=== PATIENT | female | born 1970 | race Caucasian/White ===

== ENCOUNTER 2018-06-16 06:52 | Day surgery (SDC) | payer BC ==
[2018-06-16] MEDS: Lactated Ringers 1,000 ML IV SCH ×3 (07:11→21:39)
[2018-06-16] MEDS ORDERED: fentaNYL 100 MCG/2 ML SDV ONE ×2 (07:14→08:57)
[2018-06-16] MEDS ORDERED: Propofol 200 MG/20 ML SDV ONE (07:14)
[2018-06-16] MEDS ORDERED: Ondansetron 4 MG/2 ML SDV ONE (07:14)
[2018-06-16] MEDS ORDERED: Midazolam 1 MG/ML 2 ML SDV ONE (07:15)
[2018-06-16] MEDS ORDERED: Rocuronium 10 MG/ML 10 ML Syringe ONE (07:17)
[2018-06-16] MEDS ORDERED: Dexamethasone 4 MG/ML 5 ML MDV ONE (07:17)
[2018-06-16] MEDS ORDERED: Succinylcholine 200 MG/10 ML MDV ONE (07:17)
[2018-06-16] MEDS ORDERED: Lidocaine 2% 5 ML SDV ONE (07:17)
--- NOTE | 2018-06-16 07:19 | PCM.PREANE ---
Preanesthetic Assessment - Anesthesia/Transfusion/Family Hx Anesthesia History: Prior Anesthesia Without Reaction Family History of Anesthesia Reaction: No Transfusion History: No Prior Transfusion(s) Intubation History: Unknown - Review of Systems General: No Symptoms Pulmonary: No Symptoms Cardiovascular: No Symptoms Gastrointestinal: No Symptoms Neurological: No Symptoms Other: Reports: None - Physical Assessment O2 Sat by Pulse Oximetry: 94 Respiratory Rate: 16 Vital Signs: Last Vital Signs Temp 36.2 C 06/16/18 07:10 Pulse 80 06/16/18 07:10 Resp 16 06/16/18 07:10 BP 142/92 H 06/16/18 07:10 Pulse Ox 94 L 06/16/18 07:10 Height: 1.66 m Weight: 88.904 kg ASA Class: 2 Mental Status: Alert & Oriented x3 Airway Class: Mallampati = 2 Dentition: Reports: Normal Dentition, Broken Tooth/Teeth (upper left x1 (back)) Thyro-Mental Finger Breadths: 3 Mouth Opening Finger Breadths: 3 ROM/Head Extension: Full Lungs: Clear to Auscultation, Normal Respiratory Effort Cardiovascular: Regular Rate, Regular Rhythm - Allergies Allergies/Adverse Reactions: Allergies Allergy/AdvReac Type Severity Reaction Status Date / Time No Known Allergies Allergy Verified 06/11/18 11:03 - Blood Blood Available: No - Anesthesia Plan Pre-Op Medication Ordered: None - Acknowledgements Anesthesia Type Planned: General Anesthesia Pt an Appropriate Candidate for the Planned Anesthesia: Yes Alternatives and Risks of Anesthesia Discussed w Pt/Guardian: Yes Pt/Guardian Understands and Agrees with Anesthesia Plan: Yes PreAnesthesia Questionnaire Cardiovascular History: Reports: High Cholesterol, Other (See Below) ( borderline HTN) Gastrointestinal History: Reports: Other (See Below) Other Gastrointestinal History: occasional heartburn- takes OTC meds 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: Reports: 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 , Musculoskeletal History: Reports: Arthritis Other Musculoskeletal History: arthritis in neck Endocrine/Metabolic History: Reports: Hypothyroidism, Obesity/BMI 30+ - Past Surgical History Female Surgical History: Reports: Endometrial Ablation, Salpingo-Oophorectomy , Tubal Ligation Neurological Surgical History: Reports: Lumbar Spine, Spinal Fusion Other Neurological Surgeries/Procedures: had fusion - then removal of hardware Musculoskeletal Surgical History: Reports: Other (See Below) Other Musculoskeletal Surgeries/Procedures:: right Bunionectomy- denies screw in foot - SUBSTANCE USE Smoking Status *Q: Current Every Day Smoker (3/4 ppd) Tobacco Use Within Last Twelve Months: Cigarettes Recreational Drug Use History: No - HOME MEDS Home Medications: Home Meds Levothyroxine 12.5 mg PO QAM 06/11/18 [History] Levothyroxine 200 mg PO QAM 06/11/18 [History] Multivitamin [Multiple Vitamins] 1 tab PO DAILY 06/11/18 [History] - CURRENT (IN HOUSE) MEDS Current Meds: Current Medications Lactated Ringer's (Ringers, Lactated) 1,000 mls @ 100 mls/hr IV ASDIRECTED [facility] Last Admin: 06/16/18 07:11 Dose: 100 mls/hr
[2018-06-16] MEDS ORDERED: Bupivacaine 0.25% 10 ML SDV ONE (07:27)
[2018-06-16] MEDS ORDERED: Methylene Blue 50 MG/10 ML Ampule ONE (07:27)
[2018-06-16] MEDS ORDERED: Fluorescein 5 ML Vial ONE (07:28)
[2018-06-16 07:41] LABS: CHLORIDE,CL 106 mmol/L (98-107); SODIUM,NA 142 mmol/L (136-145)
[2018-06-16] MEDS ORDERED: Scopolamine 1.5 MG Transdermal Patch ONE (08:12)
[2018-06-16] MEDS ORDERED: ceFAZolin/Dextrose,Iso-Osmotic 2 GM/50 ML Duplex Bag IV ONE (08:21)
[2018-06-16] MEDS ORDERED: Labetalol 100 MG/20 ML MDV ONE (08:21)
[2018-06-16] MEDS ORDERED: Phenylephrine/Normal Saline 100 MCG/ML 10 ML Syringe ONE (09:40)
[2018-06-16] MEDS ORDERED: Furosemide 40 MG/4 ML VIAL ONE (09:41)
[2018-06-16] MEDS ORDERED: Neostigmine Methylsulfate 1 MG/ML 5 ML Syringe ONE (09:41)
[2018-06-16] MEDS ORDERED: Glycopyrrolate 0.2 MG/ML SDV ONE (09:41)
[2018-06-16] MEDS ORDERED: Morphine 4 MG/ML Syringe IVPUSH PRN (10:25)
[2018-06-16] MEDS ORDERED: Ketorolac 30 MG/ML SDV IVPUSH ONE (10:25)
[2018-06-16] MEDS ORDERED: Aluminum Hydroxide/Magnesium Hydroxide/Simethicone Susp 30 ML Cup PO PRN (10:25)
[2018-06-16] MEDS ORDERED: Acetaminophen/oxyCODONE 325-5 MG Tab PO PRN (10:25)
[2018-06-16] MEDS ORDERED: Ondansetron 4 MG/2 ML SDV IVPUSH PRN (10:25)
[2018-06-16] MEDS ORDERED: Ketorolac 30 MG/ML SDV IVPUSH PRN (10:25)
[2018-06-16] MEDS ORDERED: Promethazine 25 MG/ML SDV IM PRN (10:25)
[2018-06-16] MEDS ORDERED: Belladonna Alkaloids/Opium 16.2-30 MG Supp RECTAL PRN (10:28)
--- NOTE | 2018-06-16 10:30 | PCM.OPNOTE ---
- General Post-Op/Procedure Note Date of Surgery/Procedure: 06/16/18 Operative Procedure(s): Laparoscopic Assisted Vaginal Hysterectomy, Right Salpingo-Oophorectomy, Cystoscopy Findings: Leiomyomata uteri. Left ovary and fallopian tube surgically absent. Pre Op Diagnosis: Leiomyomata uteri Post-Op Diagnosis: Leiomyomata uteri Anesthesia Technique: General ET Tube Primary Surgeon: Rolanda Morse Secondary Surgeon: Rody Singh Anesthesia Provider: Sheyla Gilbert Meat Inspector: Vesna Kuo Pathology: Uterus, right fallopian tube, right ovary Fluid Replacement, Intraop: 1,700 Output, Urine Amount: 240 EBL in mLs: 200 Complications: None known Condition: Good
--- NOTE | 2018-06-16 11:20 | PCM.POSTAN ---
POST ANESTHESIA ASSESSMENT - MENTAL STATUS Mental Status: Alert, Oriented - RESPIRATORY Respiratory Status: Respiratory Rate WNL, Airway Patent, O2 Saturation Stable - CARDIOVASCULAR CV Status: Pulse Rate WNL, Blood Pressure Stable - GASTROINTESTINAL GI Status: No Symptoms - PAIN Pain Score: 3 - POST OP HYDRATION Hydration Status: Adequate & Stable
[2018-06-16] MEDS: Acetaminophen/oxyCODONE 325-5 MG Tab PO PRN ×2 (12:59→18:00)
--- NOTE | 2018-06-16 14:10 | OR ---
SURGEON: Rolanda Morse M.D. DATE OF PROCEDURE: 06/16/2018 PREOPERATIVE DIAGNOSES: 1. Menometrorrhagia. 2. Uterine fibroids. POSTOPERATIVE DIAGNOSES: 1. Menometrorrhagia. 2. Uterine fibroids. PROCEDURE: Laparoscopic-assisted vaginal hysterectomy with right salpingo-oophorectomy, cystoscopy. SNOWBOARDING INSTRUCTOR: Rody Singh M.D. SECOND MUSIC VIDEO DIRECTOR: SCOTT Barton. ANESTHESIA: General endotracheal anesthesia. FLUIDS: 1700 mL crystalloid. ESTIMATED BLOOD LOSS: 200 mL. FINDINGS: Bulky, enlarged fibroid uterus. Normal-appearing right tube and ovary. Absent left tube and ovary consistent with previous surgical history. COMPLICATIONS: None. DISPOSITION: The patient to PACU stable. SPECIMEN: To pathology. PROCEDURE IN DETAIL: Isa is a 48-year-old female who is having ongoing difficulty with menometrorrhagia with known fibroid uterus. At this interval, she would like to proceed with definitive intervention. She has had a previous endometrial ablation and polypectomy hysteroscopically for which she has now failed. Risks of the procedure have been discussed. Proper consent obtained. She very strongly feels that she would like to have her right tube and ovary removed and go on aspirin therapy postoperatively. The patient was taken to the operating room where she underwent general anesthesia, was placed in modified dorsal lithotomy position, was prepped and draped in the usual sterile fashion. SCDs to lower extremities. Murray to gravity. Received Ancef prophylactically. Time-out was performed. Speculum was introduced in the vagina and anterior lip of cervix was grasped with an Allis clamp. The uterine HUMI manipulator was gently introduced. All the vaginal instruments other than the uterine instruments were now removed. Gloves changed. Attention turned abdominally. Infraumbilically, 0.25% Marcaine was introduced, please see nurse's notes for total amount dispensed. The 5-mm infraumbilical sagittal skin incision was created and anterior abdominal wall tented upward. Veress needle was gently introduced. Saline hanging drop test was performed. The pneumoperitoneum was achieved. The Veress needle was removed. Trocar was introduced, laparoscope was introduced, peritoneal contents were identified. The patient was placed in Trendelenburg positioning. The bowel was mobilized away from the pelvis. The ureter was able to be visualized along the right side and left side and seemed to be peristalsing. The left tube and ovary were absent consistent with previous surgical history. Therefore, with introduction of LigaSure, the remaining left broad ligament leaf pedicle was able to be secured down the level of the round ligament, which was secured with LigaSure, cauterized, and transected. The remaining pedicles including the upper portion of the cardinal ligament down the base of the cardinal ligament were able to be secured, cauterized and transected. Anteriorly, the peritoneum was tented upward and a bladder flap was created. The bladder was mobilized away from lower uterine segment and attention was now turned to the patient's right side. The left tube and ovary were able to be grasped, tented upward. The infundibulopelvic ligament was able to be secured with LigaSure, cauterized, and transected. The pedicle up to the level of the round ligament was able to be secured, cauterized, and transected. The pedicle incorporating the round ligament and the following pedicles including upper portion of the cardinal ligament, base of the cardinal ligament down the level of the uterosacral ligament was able to be secured, cauterized, and transected. The bladder flap was is hydrodissected away from the lower uterine segment of the cervix. Attention was now turned vaginally. Laparoscopic instruments were removed other than the ports. Pneumoperitoneum was released. The patient was placed in a hip flexed, knee flexed positioning. The weighted speculum, anterior [place], and sidewall retractors gently placed. Uterus was grasped with a Js clamp. The cervix was circumscribed with Bovie cautery, anterior and posterior laterally and the overlying mucosa was dissected away from underlying peritoneum. Posterior peritoneum was tented downward and entered sharply. Longer weighted speculum was placed anteriorly. The cul-de- sac was entered sharply. The retractors placed to mobilize the bladder away from the operative field. In serial fashion, Carlotta clamp was placed on either side to secure the uterosacral ligament, transected, suture ligated, sutured with 2-0 Vicryl. The remaining pedicle on either side was able to be secured, transected, and suture ligated. At this point, the uterus was completely free. Using Js clamps, the uterus was able to be gently maneuvered through the vaginal vault and delivered the uterus, right tube, and ovary. It was handed off to foundry technician to be sent to pathology. The pedicles were now inspected. There was an area of oozing along the left uterosacral ligament, which was plicated with a 2-0 Vicryl. The uterosacral ligament on either side was plicated to the vaginal apex. Hemostasis was evident. The cuff was now closed using 0 Vicryl in continuous running locked fashion. The cuff inspected, found to be hemostatic. Murray catheter balloon was deflated. The catheter was removed. Cystoscope was introduced using normal saline as distention media and introducing IV Lasix and fluorescein. Able to visualize dome of bladder, it was found to be intact. The right ureteral orifice followed by the left ureteral orifice able to be visualized. Fluorescein-dyed urine was seen streaming from them, helping to ensure ureteral patency. The bladder was now drained. Murray catheter was replaced after cystoscope was removed. The vaginal cuff was once again inspected and found to be hemostatic. All instruments removed vaginally. The gloves were changed and attention was returned abdominally. Pneumoperitoneum was once again achieved. Laparoscope was introduced. The pelvis was closely inspected. The pelvis was copiously irrigated and suction dried. Any areas of oozing along the base of the pedicles were cauterized with LigaSure. Hemostasis appeared evident. The uterus was once again irrigated and suction dried. Relief pressure decreased to 5 mmHg. Hemostasis was once again found to be present. Therefore pneumoperitoneum was released. All laparoscopic instruments removed. Trocars were removed under direct visualization. Much of the pneumoperitoneum as possible was able to be allowed to release. The skin was reapproximated using 3-0 Monocryl in subcuticular fashion. Sponge, instrument, needle counts correct x2. The patient tolerated the procedure well overall. She will go to PACU in stable condition. Specimen to pathology. SHELBY / PATTI /[id number]
--- NOTE | 2018-06-16 21:24 | PCM.SN ---
- Free Text/Narrative Note: Patient is resting, pain controlled overall. Explained intraop findings and procedure. Continue postoperative cares. Labs in the morning. VS stable and reassuring. Urine output adequate.
[2018-06-16] MEDS: Docusate Sodium 100 MG Cap PO SCH (21:35)
[2018-06-17] MEDS: Acetaminophen/oxyCODONE 325-5 MG Tab PO PRN (01:46)
[2018-06-17 06:05] LABS: CHLORIDE,CL 108 mmol/L (98-107); SODIUM,NA 141 mmol/L (136-145)
--- NOTE | 2018-06-17 07:44 | PCM.PN ---
<Vesna Kuo K - Last Filed: 06/17/18 07:50> - General Info Date of Service: 06/17/18 Subjective Update: Isa Lipscomb is a 48yo female who is POD#1 from [facility] with R salpingo- oophorectomy. Feeling "great" this AM. Having some pelvic cramping but feels pain well-controlled on PO pain meds. Minimal incisional pain. Catheter was removed and voiding without hesitancy or dysuria. Good UOP. Tolerating diet without nausea, appetite good. Passing flatus, no BM yet. Ambulating without difficulty. - Review of Systems General: Reports: No Symptoms HEENT: Reports: No Symptoms Pulmonary: Reports: No Symptoms Cardiovascular: Reports: No Symptoms Gastrointestinal: Reports: No Symptoms Genitourinary: Reports: Other (Pelvic pain) Musculoskeletal: Reports: No Symptoms Skin: Reports: No Symptoms Neurological: Reports: No Symptoms Psychiatric: Reports: No Symptoms - Patient Data Vitals - Most Recent: Last Vital Signs Temp 97.2 F 06/17/18 06:14 Pulse 75 06/17/18 06:14 Resp 17 06/17/18 06:14 BP 107/55 L 06/17/18 06:14 Pulse Ox 95 06/17/18 06:14 Weight - Most Recent: 88.904 kg I&O - Last 24 Hours: Intake & Output 06/16/18 06/17/18 06/17/18 22:59 06:59 14:59 Intake Total 3061 Output Total 1200 750 Balance -1200 2311 Lab Results Last 24 Hours: Laboratory Results - last 24 hr 06/16/18 06/16/18 06/16/18 Range/Units 07:10 07:10 07:10 WBC (4.0-11.0) K/uL RBC (4.30-5.90) M/uL Hgb (12.0-16.0) g/dL Hct (36.0-46.0) % MCV (80.0-98.0) fL MCH (27.0-32.0) pg MCHC (31.0-37.0) g/dL RDW Std Deviation (28.0-62.0) fl RDW Coeff of Sunny (11.0-15.0) % Plt Count (150-400) K/uL MPV (7.40-12.00) fL Neut % (Auto) (48.0-80.0) % Lymph % (Auto) (16.0-40.0) % [place] % (Auto) (0.0-15.0) % Eos % (Auto) (0.0-7.0) % Baso % (Auto) (0.0-1.5) % Neut # (Auto) (1.4-5.7) K/uL Lymph # (Auto) (0.6-2.4) K/uL [place] # (Auto) (0.0-0.8) K/uL Eos # (Auto) (0.0-0.7) K/uL Baso # (Auto) (0.0-0.1) K/uL Nucleated RBC % /100WBC Nucleated RBCs # K/uL Sodium 142 (136-145) mmol/L Potassium 3.8 (3.5-5.1) mmol/L Chloride 106 (98-107) mmol/L Carbon Dioxide 29.6 (21.0-32.0) mmol/L BUN 8 (7.0-18.0) mg/dL Creatinine 0.9 (0.6-1.0) mg/dL Est Cr Clr Drug Dosing 68.65 mL/min Estimated GFR (MDRD) > 60.0 ml/min Glucose 112 H (74-106) mg/dL Calcium 8.7 (8.5-10.1) mg/dL HCG, Qual NEGATIVE (NEG) Blood Type O POSITIVE Antibody Screen NEGATIVE 06/17/18 06/17/18 Range/Units 05:26 05:26 WBC 9.36 (4.0-11.0) K/uL RBC 3.52 L (4.30-5.90) M/uL Hgb 10.8 L (12.0-16.0) g/dL Hct 33.1 L (36.0-46.0) % MCV 94.0 (80.0-98.0) fL MCH 30.7 (27.0-32.0) pg MCHC 32.6 (31.0-37.0) g/dL RDW Std Deviation 47.6 (28.0-62.0) fl RDW Coeff of Sunny 14 (11.0-15.0) % Plt Count 204 (150-400) K/uL MPV 9.30 (7.40-12.00) fL Neut % (Auto) 68.0 (48.0-80.0) % Lymph % (Auto) 21.9 (16.0-40.0) % [place] % (Auto) 8.9 (0.0-15.0) % Eos % (Auto) 1.0 (0.0-7.0) % Baso % (Auto) 0.2 (0.0-1.5) % Neut # (Auto) 6.4 H (1.4-5.7) K/uL Lymph # (Auto) 2.1 (0.6-2.4) K/uL [place] # (Auto) 0.8 (0.0-0.8) K/uL Eos # (Auto) 0.1 (0.0-0.7) K/uL Baso # (Auto) 0.0 (0.0-0.1) K/uL Nucleated RBC % 0.0 /100WBC Nucleated RBCs # 0 K/uL Sodium 141 (136-145) mmol/L Potassium 3.7 (3.5-5.1) mmol/L Chloride 108 H (98-107) mmol/L Carbon Dioxide 30.2 (21.0-32.0) mmol/L BUN 7 (7.0-18.0) mg/dL Creatinine 0.9 (0.6-1.0) mg/dL Est Cr Clr Drug Dosing 68.65 mL/min Estimated GFR (MDRD) > 60.0 ml/min Glucose 107 H (74-106) mg/dL Calcium 7.9 L (8.5-10.1) mg/dL HCG, Qual (NEG) Blood Type Antibody Screen Med Orders - Current: Current Medications Al Hydroxide/Mg Hydroxide (Mag-Al Plus) 30 ml PO Q4H PRN PRN Reason: Indigestion Belladonna Alkaloids/Opium (B & O Supprettes No. 15a) 1 supp RECTAL Q4H PRN PRN Reason: Cramping Last Admin: 06/16/18 11:10 Dose: 1 supp Docusate Sodium (Colace) 100 mg PO BID [facility] Last Admin: 06/16/18 21:35 Dose: 100 mg Estradiol (Climara) 0.1 mg TRDERM Q7D [facility] Last Admin: 06/16/18 17:55 Dose: 0.1 mg Lactated Ringer's (Ringers, Lactated) 1,000 mls @ 100 mls/hr IV ASDIRECTED [facility] Last Admin: 06/16/18 21:39 Dose: 100 mls/hr Ketorolac Tromethamine (Toradol) 30 mg IVPUSH Q6H PRN PRN Reason: Pain (severe 7-10) Stop: 06/21/18 10:25 Last Admin: 06/16/18 21:36 Dose: 30 mg Morphine Sulfate (Morphine) 4 mg IVPUSH Q2H PRN PRN Reason: Pain (severe 7-10) Last Admin: 06/16/18 10:45 Dose: 4 mg Ondansetron HCl (Zofran) 4 mg IVPUSH Q6H PRN PRN Reason: Nausea/Vomiting Oxycodone/Acetaminophen (Percocet 325-5 Mg) 1 tab PO Q4H PRN PRN Reason: Pain (moderate 4-6) Oxycodone/Acetaminophen (Percocet 325-5 Mg) 2 tab PO Q4H PRN PRN Reason: Pain (moderate 4-6) Last Admin: 06/17/18 01:46 Dose: 2 tab Promethazine HCl (Phenergan) 25 mg IM Q6H PRN PRN Reason: Nausea/Vomiting Discontinued Medications Bupivacaine HCl (Sensorcaine-Mpf 0.25%) Confirm Administered Dose 20 ml .ROUTE .STK-MED ONE Stop: 06/16/18 07:28 Cefazolin Sodium/Dextrose (Ancef) Confirm Administered Dose 2 gm IV .STK-MED ONE Stop: 06/16/18 08:22 Dexamethasone (Dexamethasone) Confirm Administered Dose 20 mg .ROUTE .STK-MED ONE Stop: 06/16/18 07:18 Fentanyl (Sublimaze) Confirm Administered Dose 100 mcg .ROUTE .STK-MED ONE Stop: 06/16/18 07:15 Fentanyl (Sublimaze) Confirm Administered Dose 100 mcg .ROUTE .STK-MED ONE Stop: 06/16/18 08:58 Fluorescein Sodium (Ak-Fluor) Confirm Administered Dose 5 ml .ROUTE .STK-MED ONE Stop: 06/16/18 07:29 Furosemide (Lasix) Confirm Administered Dose 40 mg .ROUTE .STK-MED ONE Stop: 06/16/18 09:42 Glycopyrrolate (Robinul) Confirm Administered Dose 0.6 mg .ROUTE .[facility]-MED ONE Stop: 06/16/18 09:42 Ketorolac Tromethamine (Toradol) 30 mg IVPUSH ONETIME ONE Stop: 06/16/18 10:26 Last Admin: 06/16/18 11:32 Dose: Not Given Labetalol HCl (Normodyne) Confirm Administered Dose 100 mg .ROUTE .[facility]-MED ONE Stop: 06/16/18 08:22 Lidocaine (Xylocaine-Mpf 2%) Confirm Administered Dose 5 ml .ROUTE .[facility]-MED ONE Stop: 06/16/18 07:18 Methylene Blue (Provayblue) Confirm Administered Dose 50 mg .ROUTE .[facility]-MED ONE Stop: 06/16/18 07:28 Midazolam HCl (Versed 1 Mg/Ml) Confirm Administered Dose 2 mg .ROUTE .[facility]-MED ONE Stop: 06/16/18 07:16 Neostigmine Methylsulfate (Neostigmine) Confirm Administered Dose 5 mg .ROUTE .[facility]-MED ONE Stop: 06/16/18 09:42 Ondansetron HCl (Zofran) Confirm Administered Dose 4 mg .ROUTE .[facility]-MED ONE Stop: 06/16/18 07:15 Phenylephrine HCl (Phenylephrine In Ns 100 Mcg/Ml) Confirm Administered Dose 1 mg .ROUTE .[facility]-MED ONE Stop: 06/16/18 09:41 Propofol (Diprivan 20 Ml) Confirm Administered Dose 200 mg .ROUTE .[facility]-MED ONE Stop: 06/16/18 07:15 Rocuronium Brewster (Zemuron) Confirm Administered Dose 100 mg .ROUTE .[facility]-MED ONE Stop: 06/16/18 07:18 Scopolamine (Transderm-Scop) Confirm Administered Dose 1.5 mg .ROUTE .[facility]-MED ONE Stop: 06/16/18 08:13 Succinylcholine Chloride (Quelicin) Confirm Administered Dose 200 mg .ROUTE .[facility] -MED ONE Stop: 06/16/18 07:18 - Exam General: Alert, Oriented Lungs: Clear to Auscultation, Normal Respiratory Effort Cardiovascular: Regular Rate, Regular Rhythm, No Murmurs GI/Abdominal Exam: Normal Bowel Sounds, Soft, Non-Tender Extremities: Other (No calf tenderness) Peripheral Pulses: 2+: Posterior Tibial (L), Posterior Tibial (R), Dorsalis Pedis (L), Dorsalis Pedis (R) Skin: Warm, Dry, Intact Wound/Incisions: Dressing Dry and Intact, No Drainage. No: Erythema Neurological: No New Focal Deficit Psy/Mental Status: Normal Affect, Normal Mood - Problem List & Annotations (1) S/P laparoscopic assisted vaginal hysterectomy (LAVH) SNOMED Code(s): 625777370, 81101360, 226097393 Code(s): Z90.710 - ACQUIRED ABSENCE OF BOTH CERVIX AND UTERUS Status: Acute Current Visit: Yes (2) S/P unilateral salpingo-oophorectomy SNOMED Code(s): 694408516, 739146436 Code(s): Z90.721 - ACQUIRED ABSENCE OF OVARIES, UNILATERAL Status: Acute Current Visit: Yes - Problem List Review Problem List Initiated/Reviewed/Updated: Yes - Assessment Assessment:: Isa Lipscomb is a 48yo female who is POD#1 from [facility], R salpingo- oophorectomy. Doing well, VS and labs reassuring. - Plan Plan:: Continue routine post-op cares. Patient desires discharge home this afternoon. Again emphasized need for pelvic rest for at least 6 weeks. F/u in clinic in 2 weeks. <Rolanda Morse - Last Filed: 06/17/18 08:44> - Patient Data Vitals - Most Recent: Last Vital Signs Temp 36.2 C 06/17/18 06:14 Pulse 75 06/17/18 06:14 Resp 17 06/17/18 08:42 BP 107/55 L 06/17/18 06:14 Pulse Ox 95 06/17/18 06:14 I&O - Last 24 Hours: Intake & Output 06/16/18 06/17/18 06/17/18 22:59 06:59 14:59 Intake Total 3061 Output Total 1200 750 Balance -1200 2311 Lab Results Last 24 Hours: Laboratory Results - last 24 hr 06/17/18 06/17/18 Range/Units 05:26 05:26 WBC 9.36 (4.0-11.0) K/uL RBC 3.52 L (4.30-5.90) M/uL Hgb 10.8 L (12.0-16.0) g/dL Hct 33.1 L (36.0-46.0) % MCV 94.0 (80.0-98.0) fL MCH 30.7 (27.0-32.0) pg MCHC 32.6 (31.0-37.0) g/dL RDW Std Deviation 47.6 (28.0-62.0) fl RDW Coeff of Sunny 14 (11.0-15.0) % Plt Count 204 (150-400) K/uL MPV 9.30 (7.40-12.00) fL Neut % (Auto) 68.0 (48.0-80.0) % Lymph % (Auto) 21.9 (16.0-40.0) % [place] % (Auto) 8.9 (0.0-15.0) % Eos % (Auto) 1.0 (0.0-7.0) % Baso % (Auto) 0.2 (0.0-1.5) % Neut # (Auto) 6.4 H (1.4-5.7) K/uL Lymph # (Auto) 2.1 (0.6-2.4) K/uL [place] # (Auto) 0.8 (0.0-0.8) K/uL Eos # (Auto) 0.1 (0.0-0.7) K/uL Baso # (Auto) 0.0 (0.0-0.1) K/uL Nucleated RBC % 0.0 /100WBC Nucleated RBCs # 0 K/uL Sodium 141 (136-145) mmol/L Potassium 3.7 (3.5-5.1) mmol/L Chloride 108 H (98-107) mmol/L Carbon Dioxide 30.2 (21.0-32.0) mmol/L BUN 7 (7.0-18.0) mg/dL Creatinine 0.9 (0.6-1.0) mg/dL Est Cr Clr Drug Dosing 68.65 mL/min Estimated GFR (MDRD) > 60.0 ml/min Glucose 107 H (74-106) mg/dL Calcium 7.9 L (8.5-10.1) mg/dL Med Orders - Current: Current Medications Al Hydroxide/Mg Hydroxide (Mag-Al Plus) 30 ml PO Q4H PRN PRN Reason: Indigestion Belladonna Alkaloids/Opium (B & O Supprettes No. 15a) 1 supp RECTAL Q4H PRN PRN Reason: Cramping Last Admin: 06/16/18 11:10 Dose: 1 supp Docusate Sodium (Colace) 100 mg PO BID [facility] Last Admin: 06/17/18 08:22 Dose: 100 mg Estradiol (Climara) 0.1 mg TRDERM Q7D [facility] Last Admin: 06/16/18 17:55 Dose: 0.1 mg Lactated Ringer's (Ringers, Lactated) 1,000 mls @ 100 mls/hr IV ASDIRECTED [facility] Last Admin: 06/16/18 21:39 Dose: 100 mls/hr Ketorolac Tromethamine (Toradol) 30 mg IVPUSH Q6H PRN PRN Reason: Pain (severe 7-10) Stop: 06/21/18 10:25 Last Admin: 06/16/18 21:36 Dose: 30 mg Morphine Sulfate (Morphine) 4 mg IVPUSH Q2H PRN PRN Reason: Pain (severe 7-10) Last Admin: 06/16/18 10:45 Dose: 4 mg Ondansetron HCl (Zofran) 4 mg IVPUSH Q6H PRN PRN Reason: Nausea/Vomiting Oxycodone/Acetaminophen (Percocet 325-5 Mg) 1 tab PO Q4H PRN PRN Reason: Pain (moderate 4-6) Last Admin: 06/17/18 08:21 Dose: 1 tab Oxycodone/Acetaminophen (Percocet 325-5 Mg) 2 tab PO Q4H PRN PRN Reason: Pain (moderate 4-6) Last Admin: 06/17/18 01:46 Dose: 2 tab Promethazine HCl (Phenergan) 25 mg IM Q6H PRN PRN Reason: Nausea/Vomiting Discontinued Medications Bupivacaine HCl (Sensorcaine-Mpf 0.25%) Confirm Administered Dose 20 ml .ROUTE .STK-MED ONE Stop: 06/16/18 07:28 Cefazolin Sodium/Dextrose (Ancef) Confirm Administered Dose 2 gm IV .STK-MED ONE Stop: 06/16/18 08:22 Dexamethasone (Dexamethasone) Confirm Administered Dose 20 mg .ROUTE .STK-MED ONE Stop: 06/16/18 07:18 Fentanyl (Sublimaze) Confirm Administered Dose 100 mcg .ROUTE .STK-MED ONE Stop: 06/16/18 07:15 Fentanyl (Sublimaze) Confirm Administered Dose 100 mcg .ROUTE .STK-MED ONE Stop: 06/16/18 08:58 Fluorescein Sodium (Ak-Fluor) Confirm Administered Dose 5 ml .ROUTE .STK-MED ONE Stop: 06/16/18 07:29 Furosemide (Lasix) Confirm Administered Dose 40 mg .ROUTE .STK-MED ONE Stop: 06/16/18 09:42 Glycopyrrolate (Robinul) Confirm Administered Dose 0.6 mg .ROUTE .STK-MED ONE Stop: 06/16/18 09:42 Ketorolac Tromethamine (Toradol) 30 mg IVPUSH ONETIME ONE Stop: 06/16/18 10:26 Last Admin: 06/16/18 11:32 Dose: Not Given Labetalol HCl (Normodyne) Confirm Administered Dose 100 mg .ROUTE .ST-MED ONE Stop: 06/16/18 08:22 Lidocaine (Xylocaine-Mpf 2%) Confirm Administered Dose 5 ml .ROUTE .STK-MED ONE Stop: 06/16/18 07:18 Methylene Blue (Provayblue) Confirm Administered Dose 50 mg .ROUTE .ST-MED ONE Stop: 06/16/18 07:28 Midazolam HCl (Versed 1 Mg/Ml) Confirm Administered Dose 2 mg .ROUTE .STK-MED ONE Stop: 06/16/18 07:16 Neostigmine Methylsulfate (Neostigmine) Confirm Administered Dose 5 mg .ROUTE .ST-MED ONE Stop: 06/16/18 09:42 Ondansetron HCl (Zofran) Confirm Administered Dose 4 mg .ROUTE .STK-MED ONE Stop: 06/16/18 07:15 Phenylephrine HCl (Phenylephrine In Ns 100 Mcg/Ml) Confirm Administered Dose 1 mg .ROUTE .STK-MED ONE Stop: 06/16/18 09:41 Propofol (Diprivan 20 Ml) Confirm Administered Dose 200 mg .ROUTE .STK-MED ONE Stop: 06/16/18 07:15 Rocuronium Brewster (Zemuron) Confirm Administered Dose 100 mg .ROUTE .STK-MED ONE Stop: 06/16/18 07:18 Scopolamine (Transderm-Scop) Confirm Administered Dose 1.5 mg .ROUTE .STK-MED ONE Stop: 06/16/18 08:13 Succinylcholine Chloride (Quelicin) Confirm Administered Dose 200 mg .ROUTE .STK -MED ONE Stop: 06/16/18 07:18 - My Orders Last 24 Hours: My Active Orders 06/16/18 10:25 Patient Status [ADT] Routine May Shower [RC] ASDIRECTED Notify Provider Intake and Out [RC] ASDIRECTED Notify Provider Vital Signs [RC] ASDIRECTED Oxygen Therapy [RC] ASDIRECTED RT Incentive Spirometry [RC] Q2HWA Up With Assistance [RC] PER UNIT ROUTINE Up ad Chayo [RC] PER UNIT ROUTINE Urinary Catheter Removal [RC] Per Unit Routine Vital Signs [RC] PER UNIT ROUTINE Acetaminophen/oxyCODONE [Percocet 325-5 MG] 1 tab PO Q4H PRN Acetaminophen/oxyCODONE [Percocet 325-5 MG] 2 tab PO Q4H PRN Alum Hydrox/Mag Hydrox/Simeth [Mag-Al Plus] 30 ml PO Q4H PRN Ketorolac [Toradol] 30 mg IVPUSH Q6H PRN Morphine 4 mg IVPUSH Q2H PRN Ondansetron [Zofran] 4 mg IVPUSH Q6H PRN Promethazine [Phenergan] 25 mg IM Q6H PRN Peripheral IV Discontinue [OM.PC] Routine Sequential Compression Device [OM.PC] Per Unit Routine Resuscitation Status Routine 06/16/18 10:26 Perineal Care [OM.PC] Per Unit Routine 06/16/18 10:28 Belladonna/Opium [B & O Supprettes No. 15A] 1 supp RECTAL Q4H PRN 06/16/18 10:30 Estradiol [Climara] 0.1 mg TRDERM Q7D 06/16/18 21:00 Docusate Sodium [Colace] 100 mg PO BID 06/16/18 Lunch Regular Diet [DIET] - Plan Plan:: Reviewed and agree with above. Patient seen and examined. Labs are stable, reassuring. VS stable. Voiding without difficulty and ambulating halls. May discharge to home. Infection, bleeding and discharge instructions reviewed. Follow up at [facility] 2 and 6 weeks.
[2018-06-17] MEDS: Docusate Sodium 100 MG Cap PO SCH (08:22)
--- NOTE | 2018-06-17 08:43 | PCM48HPAN ---
Post Anesthesia Note - EVALUATION WITHIN 48HRS OF ANESTHETIC Vital Signs in Normal Range: Yes Patient Participated in Evaluation: Yes Respiratory Function Stable: Yes Airway Patent: Yes Cardiovascular Function Stable: Yes Hydration Status Stable: Yes Pain Control Satisfactory: Yes Nausea and Vomiting Control Satisfactory: Yes Mental Status Recovered: Yes Resp Rate: 17
== END 2018-06-17 09:11 | disposition home or self-care (01) ==
LOC: MW.SDS 06:52 → MW.MS 10:25 → MW.SDS 06-17 09:11
PROVIDERS: ATTEND Obstetrics & Gynecology
DX: D25.9 Leiomyoma of uterus, unspecified (principal); N80.0 Endometriosis of uterus; N83.01 Follicular cyst of right ovary; N83.8 Other noninflammatory disorders of ovary, fallopian tube and broad ligament; R03.0 Elevated blood-pressure reading, without diagnosis of hypertension; E03.9 Hypothyroidism, unspecified; E78.00 Pure hypercholesterolemia, unspecified; E66.9 Obesity, unspecified; F17.210 Nicotine dependence, cigarettes, uncomplicated; Z79.899 Other long term (current) drug therapy
CPT/HCPCS: 36415; 58554; 80048; 84703; 85025; 85027; 86850; 86900; 86901; 88307; A9270; J0330; J0690; J1100; J1885; J1940; J2250; J2270; J2370; J2405; J2704; J3010; J3490; J7120; 00942

== ENCOUNTER 2021-10-27 11:21 | Emergency (ER) | payer BC ==
[2021-10-27] MEDS ORDERED: Cephalexin 500 MG Cap PO ONE (15:44)
[2021-10-27] MEDS ORDERED: traMADol 50 MG Tab PO ONE (15:44)
== END 2021-10-27 16:05 | disposition home or self-care (01) ==
LOC: MW.ED 11:21
DX: S09.90XA Unspecified injury of head, initial encounter (principal); S02.31XA Fracture of orbital floor, right side, initial encounter for closed fracture; S02.19XA Other fracture of base of skull, initial encounter for closed fracture; S01.111A Laceration without foreign body of right eyelid and periocular area, initial encounter; E03.9 Hypothyroidism, unspecified; E66.9 Obesity, unspecified; Z79.899 Other long term (current) drug therapy; W01.198A Fall on same level from slipping, tripping and stumbling with subsequent striking against other object, initial encounter; Y92.009 Unspecified place in unspecified non-institutional (private) residence as the place of occurrence of the external cause
CPT/HCPCS: 12014; 70450; 70450-26; 70486; 70486-26; 99283-25

== ENCOUNTER 2022-11-21 07:39 | Day surgery (SDC) | payer BC ==
[~2022-11-21 07:39] MED LIST: Bupivacaine 0.5% 30 ML SDV ONE; Bupivacaine 25%/EPINEPHrine/PF 0 ML ONE; Lactated Ringers 1,000 ML IV SCH; Sodium Chloride 0.9% 10 ML Syringe FLUSH PRN; Sodium Chloride 0.9% 2.5 ML Syringe FLUSH PRN; Sodium Chloride 0.9% 20 ML SDV IV PRN; ceFAZolin 2 GM in Premix Bag 1 BAG IV ONE
[2022-11-21] MEDS ORDERED: Albuterol 0.083% 2.5 MG/3 ML Neb Soln NEB PRN (08:06)
[2022-11-21] MEDS ORDERED: Metoclopramide 10 MG/2 ML SDV IVPUSH PRN (08:06)
[2022-11-21] MEDS ORDERED: Ondansetron 4 MG/2 ML SDV IVPUSH PRN (08:06)
[2022-11-21] MEDS ORDERED: HYDROmorphone 1 MG/ML Syringe IVPUSH PRN (08:06)
[2022-11-21] MEDS ORDERED: Naloxone 0.4 MG/ML SDV IVPUSH PRN (08:06)
[2022-11-21] MEDS ORDERED: Morphine 2 MG/ML SYRINGE IVPUSH PRN (08:06)
[2022-11-21] MEDS ORDERED: fentaNYL 50 MCG/ML SDV IVPUSH PRN (08:06)
[2022-11-21] MEDS ORDERED: Ondansetron 4 MG/2 ML SDV ONE (08:21)
[2022-11-21] MEDS ORDERED: Dexamethasone 4 MG/ML 5 ML MDV ONE (08:21)
[2022-11-21] MEDS ORDERED: Lidocaine 2% 5 ML SDV ONE (08:21)
[2022-11-21] MEDS ORDERED: fentaNYL 100 MCG/2 ML SDV ONE (08:21)
[2022-11-21] MEDS ORDERED: Ketorolac 30 MG/ML SDV ONE (08:21)
[2022-11-21] MEDS ORDERED: Rocuronium Bromide 50 MG/5 ML Syringe ONE (08:21)
[2022-11-21] MEDS ORDERED: Propofol 200 MG/20 ML SDV ONE (08:21)
[2022-11-21] MEDS ORDERED: ceFAZolin 2 GM Vial ONE (09:06)
[2022-11-21] MEDS ORDERED: Phenylephrine 1% 10 MG/ML SDV ONE (09:15)
== END 2022-11-21 10:49 | disposition home or self-care (01) ==
LOC: MW.SDS 07:39
PROVIDERS: ATTEND Surgery
DX: D17.21 Benign lipomatous neoplasm of skin and subcutaneous tissue of right arm (principal); I10 Essential (primary) hypertension; M19.90 Unspecified osteoarthritis, unspecified site; E03.9 Hypothyroidism, unspecified; Z79.890 Hormone replacement therapy; Z79.899 Other long term (current) drug therapy; F17.210 Nicotine dependence, cigarettes, uncomplicated
CPT/HCPCS: 23073; J0131; J0690; J1100; J1885; J2370; J2405; J2704; J3010; J3490; J7120; 00400